=== PATIENT | male | born 1960 | race Caucasian/White ===

== ENCOUNTER → 2016-06-13 | Outpatient (CLI) | payer OTHER ==
[~2016-06-13] MED LIST: AMIODARONE PO; ASPIRIN PO; ASPIRIN81 M1 PO; CELEXA10 MG PO; CIPROFLOXACIN500 M1 PO; CITALOPRAM HBR40 MG PO; COUMADIN7.5 MG PO; DAKIN'S MODIF1000 ML EXT; LEVEMIR FL100 UNIT/1 SQ; LISINOPRIL10 MG PO; LISINOPRIL20 MG PO; LOPRESSOR PO; METOPROLOL TAR25 MG PO; NOVOLOG100 U/M2 SUBQ; OXYCODONE HCL5 MG PO; PERCOCET 10/3251 TAB PO; ZOCOR20 MG PO; ZYVOX600 MG PO; [UNRECOGNIZED DRUG - OTHER] PO
[2016-06-13 10:50] LABS: ALBUMIN SERUM 3.5 g/dL (3.5-5.0); BILIRUBIN,TOTAL 0.3 mg/dL (0.2-2.0); BUN/CREATININE RATIO 18.18; CREATININE SERUM 1.1 mg/dL (0.6-1.4); GLOM FILT RATE Estimated 74.7 mL/min (>60); POTASSIUM 4.5 mmol/L (3.5-5.1)
== END | disposition home or self-care (01) ==
LOC: CLAB 08:43
PROVIDERS: Internal Medicine Endocrinology, Diabetes & Metabolism
DX: E11.9 Type 2 diabetes mellitus without complications (principal); E78.5 Hyperlipidemia, unspecified
CPT/HCPCS: 36415; 80053; 80061; 83036